=== PATIENT | female | born 1960 | race Caucasian/White ===

== ENCOUNTER 2024-08-22 09:19 | Day surgery (SDC) | payer BC ==
[2024-08-15 10:07] LABS: Absolute Eosinophils 0.1 K/uL (0-0.5); Absolute Lymphocytes (CBC) 1.1 K/uL (0.7-4.9); Absolute Monocytes 0.3 K/uL (0.1-1.3); Absolute Neutrophil 2.6 K/uL (1.8-8.0); Basophils % 0.4 % (0-1.3); Eosinophils % 3.1 % (0-4.4); Hematocrit 37.6 % (36.0-45.0); Hemoglobin 12.8 g/dL (12.0-15.0); Lymphocytes % 26.1 % (15.3-44.8); MCH 30.9 pg (27.0-35.0); MCHC 34.1 g/dL (32.0-36.0); MCV 90.6 fL (80-100); MPV 7.7 fL (7.6-11.3); Monocytes % 7.5 % (3.3-12.3); Neutrophils % 62.9 % (41.7-73.7); Platelets 264 thou/uL (152-406); RBC Red Blood Cell Count 4.15 M/uL (3.86-4.86); Red Cell Distribution Width 13.5 % (12.1-15.2)
[2024-08-15 10:33] LABS: Anion Gap 9.1 mEq/L (5.0-15.0); Potassium 4.1 mEq/L (3.5-5.1)
--- NOTE | 2024-08-15 14:12 | EKG ---
Test Date: 2024-08-15 Test Time: 09:19:15 Social Media Campaign Manager: TREMAYNE MEASUREMENT RESULTS: Intervals: Rate: 59 RI: 164 QRSD: 88 QT: 414 QTc: 409 [place]: P: 58 RI: 164 QRS: 52 T: 67 INTERPRETIVE STATEMENTS: Sinus bradycardia Otherwise normal ECG No previous ECG available for comparison Electronically Signed On 08-15-24 14:12:14 CDT by Husam Koch
[2024-08-22] MEDS ORDERED: Ringers Lactate 1,000 ML IV ONE (09:24)
[2024-08-22] MEDS ORDERED: KETOROLAC 30 MG/ML INJ ONE (11:00)
[2024-08-22] MEDS ORDERED: LIDOCAINE 2% MPF 5 ML VIAL ONE (11:00)
[2024-08-22] MEDS ORDERED: ONDANSETRON 4 MG/2 ML VIAL ONE (11:00)
[2024-08-22] MEDS ORDERED: dexAMETHasone 10 MG/ML VIAL ONE (11:00)
[2024-08-22] MEDS ORDERED: propofoL 200 MG/20 ML VIAL IV ONE (11:00)
[2024-08-22] MEDS ORDERED: ROCURONIUM 50 MG/5 ML VIAL IV ONE (11:01)
[2024-08-22] MEDS ORDERED: MIDAZOLAM HCL 2 MG/2 ML INJ ONE ×2 (11:01→11:09)
[2024-08-22] MEDS ORDERED: FENTANYL CITR 100 MCG/2 ML ONE (11:01)
[2024-08-22] MEDS: CEFAZOLIN SODIUM 2 GM/VIAL ONE (11:05)
[2024-08-22] MEDS: LIDOCAINE HCL/EPINEPHRINE 20 ML MDV ONE (11:33)
[2024-08-22] MEDS ORDERED: SUGAMMADEX SODIUM 200 MG/2 ML VIAL IV ONE (11:57)
[2024-08-22] MEDS ORDERED: NS 0.9% VIAL 10 ML ONE (12:16)
--- NOTE | 2024-08-22 12:35 | P.OP ---
Preoperative diagnosis: RIGHT Inguinal Hernia Postoperative diagnosis: RIGHT Inguinal Hernia Primary procedure: Open RIGHT Inguinal Hernia Repair with mesh Anesthesia: GETA + Local Estimated blood loss: <5cc Specimen: Hernia Sack, Hernia Contents Findings: adipose incarcerated in hernia sack Complications: None Implants: Bard Perfix Medium Plug and Patch Transferred to: Recovery Room Condition: Good
--- NOTE | 2024-08-22 13:03 | OP ---
Date of Procedure: 08/22/2024 Surgeon: Dilshad Camacho MD, Preoperative Diagnosis: Right inguinal hernia. Postoperative Diagnosis: Right inguinal hernia. Procedure Performed: Open right inguinal hernia repair with mesh. Anesthesia: General endotracheal plus local with 1% lidocaine with epinephrine. Estimated Blood Loss: Less than 5 cc. Specimens: Hernia sac and hernia contents. Findings: Adipose, incarcerated into hernia sac. Complications: None. Implants: Bard medium plug and patch PerFix hernia repair system. Disposition: The patient was transferred to recovery room in good condition. Procedure In Detail: After informed consent was obtained, the patient was brought to the operating r oom, prepped and draped in the usual sterile fashion. After adequate anesthesia was achieved, I anes thetized an area of the right inguinal region down to subcutaneous tissues. I made an inguinal incis ion down to subcutaneous tissues, dissected down through Camper's fat and Zoraida's fascia to expose t he external oblique aponeurosis. This was opened sharply with a 15 blade ultimately and then approxi mately opened to its entirety from the deep inguinal ring to the proximal edge using Metzenbaum sciss ors, protecting the ilioinguinal nerve throughout. At this point, I encircled the round ligament of the uterus using a Dalton drain and dissected free the hernia sac from the medial aspect of the cord /round ligament. At this point, I removed the hernia sac. After opening it removing preperitoneal f at which was incarcerated in this area, sent that off for pathologic examination. I then closed the inguinal hernia sac using 3-0 Vicryl suture and imbricated it back in the preperitoneal space. At th is point, I deployed a medium Bard PerFix plug into the preperitoneal space and circumferentially sec ured around after appropriately deploying it using 2-0 PDS sutures. At this point, I sized the patch appropriately, placed on the pubic tubercle medially, secured it using a 2-0 PDS suture and then on the medial and lateral shelving edge of the internal oblique aponeurosis and the undersurface of the inguinal ligament reconstituting the deep inguinal ring at this point with the same said 2-0 PDS sutu res in an interrupted fashion. At this point, the mesh was in good apposition and I proceeded to irr igate the area copiously and dried until completely clear. I then closed the external oblique aponeu rosis using a 3-0 Vicryl suture in a running fashion. I closed the Camper's fat and Zoraida's fascia en bloc using the same set 3-0 Vicryl suture. Deep dermal plane was also closed with 3-0 Vicryl sutu re for multi-layer complex closure in a multilayer simple closure. At this point, the skin was close d with a 4-0 Monocryl in a running fashion. Dermabond was placed over top. The patient tolerated th e procedure well without incident or complication and transferred to PACU in good condition. All cou nts were correct at the end of the case. ELIZABETH/HARJIT Voice ID: [id number] Report ID: [id number]
[2024-08-22] MEDS: ONDANSETRON 4 MG/2 ML VIAL ONE (13:09)
[2024-08-22] MEDS: HYDROCODONE/APAP 7.5/325 MG TAB ONE (13:57)
[2024-08-22 14:04] VITALS: BP 142/83; TEMP 97.7; O2SAT 97
== END 2024-08-22 14:50 | disposition home or self-care (01) ==
LOC: OR 09:19
PROVIDERS: ATTEND Surgery
PROC: 0YU50JZ Supplement Right Inguinal Region with Synthetic Substitute, Open Approach (ICD-10-PCS; principal; 2024-08-22 11:05)
DX: K40.90 Unilateral inguinal hernia, without obstruction or gangrene, not specified as recurrent (principal)
CPT/HCPCS: 93005; 85025; 80048; 36415; 88302; 49505; A4216; J2704; J2003; J2250 ×2; J3010; J1100; J2405 ×2; J7120

== ENCOUNTER 2024-12-27 00:36 | Inpatient (IN) | payer BC ==
--- OUTSIDE RECORDS SUMMARY | 2024-12-27 00:40 | XMS REPORT | Clinical Summary ---
Author Name Unknown Organization [facility] Address [address] [place] [address] Care Team Providers Care Recoil Spring Winder Name Role Phone Manuel Hernández MD Unavailable [phone] Manuel Hernández MD Unavailable [phone] Manuel Crawford MD Unavailable [phone] Blake Avila MD Primary Care Provider [phone] Farida Lira MD Unavailable Allergies No known active allergies Medications PARoxetine (PAXIL) 20 mg tablet 20 mg daily. 09/04/2016 Active tiZANidine (ZANAFLEX) 4 mg tablet 4 mg daily as needed. Active ALPRAZolam (XANAX) 0.25 mg tablet 0.25 mg daily as needed. Active UNABLE TO FIND Med Name: Sleep aid PRN (pt unsure of name) Active MELATONIN ORAL Take by mouth. Active Active Problems Problem Noted Date Diagnosed Date Personal history of malignant neoplasm of breast 12/03/2017 Family history of malignant neoplasm of breast 0 12/03/2017 Immunizations Immunization Administration Dates Next Due Moderna SARS-CoV-2 Vaccination 06/08/2021 Pfizer SARS-CoV-2 Vaccination (Purple Cap) 08/18,07/28/2020 Surgical History Surgery Date Site/Laterality Comments BREAST LUMPECTOMY 05/07/1977 - 05/06/1978 BREAST LUMPECTOMY 05/07/1987 - 05/06/1988 and fatty spot removed from leg at same time SIMPLE TOTAL MASTECTOMY 05/07/2000 - 05/06/2001 Bilatera l Medical History Medical History Date Comments Breast cancer Left Benign cyst of breast X2 Hypercholesterolemia not medicat ed, not very high Family History Medical History Relation Name Comments Colon cancer Father dx late 70s Melanoma Father dx 30s, 40s (paola th times on back) Breast cancer Maternal Aunt dx 50s Breast cancer Mother Colon cancer Paternal Aunt dx 80s Skin cancer Paternal Grandfather non-dorian anoma Esophageal cancer Paternal Grandmother dx 80s Lymphoma Paternal Uncle Skin cancer Paternal Uncle non-melanoma Relation Name Status Comments Father Maternal Aunt Mother Paternal Aunt Paternal Grandfather Paternal Grandmother Paternal Uncle Alive Social History Tobacco Use Types Packs/Day Years Used Date Smoking Tobacco: Never Smokeless Tobacco: Never Alcohol Use Standard Drinks/Week Comments Yes 1 (1 standard drink = 0.6 oz pur e alcohol) Comments Unknown Sex and Gender Information Value Date Recorded Sex Assigned at Female 07/22/2021 12:24 PM CDT 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 Gender Identity Female 07/22/2021 12:24 PM CDT Sexual Orientation Straight 07/22/2021 12 :24 PM CDT Obstetrics History Para Term AB IAB SAB Ectopic Multiple Livin g Live Births 2 2 2 Date Outcome GA Total Labor Labor/2nd/3rd Weight Sex Type Anes PTL Virginie A1 A5 Name Clin Para Para Plan of Treatment Health Maintenance Due Date Last Done Comments Pneumococcal Vaccine: 50+ Ye ars (1 of 1 - PCV) 11/04/2011 COVID-19 Vaccine ( season) 2024 06/08/2021, 08/18/2020, 07/28/2020 Influenza Vaccine (#1) 2025 Insurance BCBS PPO POS OUT OF STATE GENERIC BCBS PPO POS OUT OF STATE GENERIC Care Teams Recoil Spring Winder Relationship Specialty Start Date End Date Manuel Hernández MD [address] [place] [address] [place] [address] [email or web address] Found! PCP - External Referring 06/19/16 Manuel Hernández MD [address] [place] [address] [place] [address] [email or web address] Found! PCP - External Follow Up A 06/19/16 Manuel Crawford MD [address] [place] [phone] [email or web address] PCP - External Primary Care Provider Internal Medicine 06/23/16 Blake Avila MD [address] [place] [phone] [email or web address] PCP - General Plastic and Reconstructive Surgery 07/26/21 Farida Lira MD [address] [place] [address] [phone] [email or web address] Consulting Physician Medical Oncology 12/31/17
[2024-12-27] MEDS ORDERED: METOPROLOL TARTRATE 5 MG/5 ML INJ IV ONE (00:55)
[2024-12-27] MEDS ORDERED: ENOXAPARIN 80 MG/0.8 ML SQ ONE (00:55)
[2024-12-27] MEDS ORDERED: FAMOTIDINE 20 MG/2 ML VIAL IV ONE (00:55)
[2024-12-27] MEDS ORDERED: METOPROLOL TAR 50 MG TAB ONE (00:55)
[2024-12-27] MEDS ORDERED: NA CHLORIDE 0.9% 1,000 ML ONE (00:55)
[2024-12-27] MEDS ORDERED: Magnesium Sulfate 2gm IVPB 2 G/50 ML BAG IV ONE (00:56)
[2024-12-27 01:09] LABS: PT Prothrombin Time 11.9 SECONDS (10-13.0); Protime INR 1.05
[2024-12-27 01:15] LABS: Absolute Lymphocytes (CBC) 1.7 K/uL (0.7-4.9); Hematocrit 39.8 % (36.0-45.0); Hemoglobin 13.5 g/dL (12.0-15.0); MCH 30.7 pg (27.0-35.0); MCHC 33.9 g/dL (32.0-36.0); MCV 90.4 fL (80-100); MPV 7.6 fL (7.6-11.3); Nucleated RBC Absolute Count 0.0 (0-0); Nucleated Red Blood Cells % 0.1 % (0-0); RBC Red Blood Cell Count 4.40 M/uL (3.86-4.86); White Blood Count 5.10 thou/uL (4.3-10.9)
[2024-12-27 01:29] LABS: ALT/SGPT 23.0 U/L (13-56); AST/SGOT 18.0 U/L (15-37); Albumin 4.1 g/dL (3.4-5.0); Albumin/Globulin Ratio 1.2 (1.1-1.8); Alkaline Phosphatase 94.0 U/L (45-117); Anion Gap 8.3 mEq/L (5.0-15.0); BUN Blood Urea Nitrogen 11.0 mg/dL (7-18); Bilirubin Indirect, Calculated 0.4 mg/dL (0.2-0.8); Globulin 3.5 g/dL (2.3-3.5); Glucose Level 100.0 mg/dL (74-106); Lipase 31.0 U/L (13-75); Magnesium 2.3 mg/dL (1.6-2.4); NT PRO-BNP 77.0 pg/mL (<125); Potassium 3.3 mEq/L (3.5-5.1); Troponin High Sensitivity 9.4 pg/mL (<58.9)
[2024-12-27 01:30] LABS: Thyroid Stimulating Hormone 4.89 uIU/mL (0.358-3.740)
[2024-12-27] MEDS ORDERED: DIGOXIN 0.25 MG/ML AMP ONE (01:46)
[2024-12-27 01:55] LABS: Urine Microscopic Reflex YN NO UMIC
[2024-12-27] MEDS ORDERED: ASPIRIN 81 MG CHEWABLE TABLET ONE (01:58)
[2024-12-27] MEDS ORDERED: POTASSIUM 25 MEQ EFFERV TAB ONE (01:58)
--- NOTE | 2024-12-27 01:59 | RAD REPORT ---
INDICATION: Cough COMPARISON: Chest radiograph May 19, 2019 FINDINGS: Single frontal view of the chest was obtained. SUPPORT DEVICES: None HEART/MEDIASTINUM: Cardiomediastinal contours are normal. LUNGS/PLEURA: Lungs are clear. No pleural effusion or pneumothorax. OTHER: No other significant findings. IMPRESSION: No acute findings. Electronically signed by: Philip Sheffield DO 12/27/2024 01:50 AM CDT RP NR Due to temporary technical issues with the PACS/[employer] reporting system, reports are being signed by the in-house radiologist without review as a courtesy to ensure prompt reporting the [facility] radiologist is fully responsible for the content of the report. Transcribed Date/Time: 12/27/2024 1:59 AM
--- NOTE | 2024-12-27 02:01 | EDPHYS ---
Physician Documentation [facility] Name: Mahsa Obrien Age: 64 yrs Sex: Female : 1960 Arrival Date: 12/27/2024 Time: 00:36 Bed 5 Private MD: Jovany Solis V ED Physician Jose Alberto Ott HPI: 12/27 01:53 This 64 yrs old Female presents to ER via Ambulatory with complaints of gerry Irregular Pulse, High Blood Pressure, Doesn't Feel Right, Patient stated resting pulse at home was 129. 01:53 The patient has elevated blood pressure and discovered this at home, with a home gerry device. Onset: The symptoms/episode began/occurred just prior to arrival, this morning. Historical: - Allergies: 01: No Known Allergies; vc1 - Home Meds: 01:01 paroxetine HCl 20 mg oral tablet daily [Active]; Ozempic 0.25 mg or 0.5 mg (2 mg/3 mL) vc1 subcutaneous Pen Injector [Active]; - PMHx: 01:01 Anxiety; breast cancer; vc1 - PSHx: 01:01 Double Masectomy; Lymph nodes removed on left (2000); Inquinal hernia repair (August 22, vc1 2024); - Immunization history:: Adult Immunizations up to date. - Infectious Disease History:: Denies. - Social history:: Smoking status: Patient denies any tobacco usage or history of. ROS: 01:54 Constitutional: Negative for fever, chills, and weight loss, Eyes: Negative for injury, gerry pain, redness, and discharge, ENT: Negative for injury, pain, and discharge, Neck: Negative for injury, pain, and swelling, Respiratory: Negative for shortness of breath, cough, wheezing, and pleuritic chest pain, Abdomen/GI: Negative for abdominal pain, nausea, vomiting, diarrhea, and constipation, Back: Negative for injury and pain, : Negative for injury, bleeding, discharge, and swelling, MS/Extremity: Negative for injury and deformity, Skin: Negative for injury, rash, and discoloration, Neuro: Negative for headache, weakness, numbness, tingling, and seizure, Psych: Negative for depression, anxiety, suicide ideation, homicidal ideation, and hallucinations, Allergy/Immunology: Negative for hives, rash, and allergies, Endocrine: Negative for neck swelling, polydipsia, polyuria, polyphagia, and marked weight changes, Hematologic/Lymphatic: Negative for swollen nodes, abnormal bleeding, and unusual bruising, :54 Cardiovascular: Positive for chest pain, palpitations, :54 MS/extremity: Negative for pain, swelling, Exam: : Constitutional: This is a well developed, well nourished patient who is awake, alert, gerry and in no acute distress. Head/Face: Normocephalic, atraumatic. Eyes: Pupils equal round and reactive to light, extra-ocular motions intact. Lids and lashes normal. Conjunctiva and sclera are non-icteric and not injected. Cornea within normal limits. Periorbital areas with no swelling, redness, or edema. ENT: Nares patent. No nasal discharge, no septal abnormalities noted. Tympanic membranes are normal and external auditory canals are clear. Oropharynx with no redness, swelling, or masses, exudates, or evidence of obstruction, uvula midline. Mucous membranes moist. Neck: Trachea midline, no thyromegaly or masses palpated, and no cervical lymphadenopathy. Supple, full range of motion without nuchal rigidity, or vertebral point tenderness. No Meningismus. Chest/axilla: Normal chest wall appearance and motion. Nontender with no deformity. No lesions are appreciated. Respiratory: Lungs have equal breath sounds bilaterally, clear to auscultation and percussion. No rales, rhonchi or wheezes noted. No increased work of breathing, no retractions or nasal flaring. Abdomen/GI: Soft, non-tender, with normal bowel sounds. No distension or tympany. No guarding or rebound. No evidence of tenderness throughout. Back: No spinal tenderness. No costovertebral tenderness. Full range of motion. Skin: Warm, dry with normal turgor. Normal color with no rashes, no lesions, and no evidence of cellulitis. MS/ Extremity: Pulses equal, no cyanosis. Neurovascular intact. Full, normal range of motion., bilateral aka Neuro: Awake and alert, GCS 15, oriented to person, place, time, and situation. Cranial nerves II-XII grossly intact. Motor strength 5/5 in all extremities. Sensory grossly intact. Cerebellar exam normal. Normal gait. Psych: Awake, alert, with orientation to person, place and time. Behavior, mood, and affect are within normal limits. 01:54 Cardiovascular: Rate: tachycardic, actual rate is 150 bpm, Rhythm: irregularly irregular, Pulses: Pulses are 4+ in bilateral radial, brachial, femoral, popliteal, posterior tibial and and dorsalis pedis arteries.. Heart sounds: normal, Edema: is not appreciated, JVD: is not appreciated, 01:54 ECG was reviewed by the Attending Physician. 01:54 Musculoskeletal/extremity: Circulation is intact in all extremities. Sensation intact. Compartment Syndrome exam of affected extremity: is normal. no pain, no numbness, no tingling, no sensation deficit, no palor, no weak pulses, Weight bearing: able to fully bear weight, DVT Exam: No signs of deep vein thrombosis. no pain, no swelling, no tenderness, negative Homans' sign noted on exam, no appreciated bluish discoloration, no erythema, no increased warmth, Vital Signs: 00:52 Weight 82.55 kg; kd3 00:58 BP 128 / 114; Pulse 165; Resp 18; Temp 97.5; Pulse Ox 96% ; Weight 82.55 kg; Height 5 vc1 ft. 7 in. ; Pain 4/10; 01:20 BP 150 / 94; Pulse 127; Resp 17; Pulse Ox 98% on R/A; kd3 02:26 BP 118 / 98; Pulse 112; Resp 16; Pulse Ox 99% on R/A; kd3 02:54 BP 112 / 87; Pulse 104; Resp 18; Pulse Ox 96% ; cp4 00:58 Body Mass Index 28.50 (82.55 kg, 170.18 cm) vc1 00:58 Pain Scale: Adult vc1 [place] Coma Score: 01:54 Eye Response: spontaneous(4). Motor Response: obeys commands(6). Verbal Response: gerry oriented(5). Total: 15. MDM: 00:45 Medical Screening Exam initiated gerry 01:57 Antibiotic administration: Not indicated. Differential diagnosis: Anemia Anxiety gerry Reaction asthma, Bronchitis CHF exacerbation, hypertensive crisis, Malignant HTN, Myocardial Infarction pneumonia, pulmonary edema, Pulmonary Embolism reactive airway disease, Unstable Angina. HEART Score: History: Moderately Suspicious (1), ECG: Non specific repolarization disturbance / LBTB / PM (1), Age: > 45 and < 65 years (1), Risk Factors: > or = 3 Risk factors for atherosclerotic disease (2), [Hypercholesterolemia] [Hypertension] [+ Family HX] Troponin: < or = 1 x Normal Limit (0). The patient was given aspirin in the Emergency Department. HARMAN Risk Score: 1 - Three or more CAD risk factors, TOTAL SCORE = 1. Immunization status: Influenza vaccine: within last 5 years. Data reviewed: vital signs, nurses notes, lab test result(s), EKG, radiologic studies, plain films. Consideration of Admission/Observation Patient was admitted/placed on observation. Escalation of care including admission/observation considered. I considered the following discharge prescriptions or medication management in the emergency department Medications were administered in the Emergency Department. See MAR. Independent interpretation of the following test(s) in the Emergency Department EKG: See my EKG interpretation above. 12/27 00:48 Order name: Basic Metabolic Panel; Complete Time: : [facility] 12/27 00:48 Order name: CBC with Diff; Complete Time: [facility] 12/27 00:48 Order name: LFT's; Complete Time: [facility] 12/27 00:48 Order name: Magnesium; Complete Time: [facility] 12/27 00:48 Order name: NT PRO-BNP; Complete Time: : [facility] 12/27 00:48 Order name: PT-INR; Complete Time: : [facility] 12/27 00:48 Order name: Troponin HS; Complete Time: : [facility] 12/27 00:48 Order name: Lipase; Complete Time: : [facility] 12/27 00:48 Order name: TSH; Complete Time: : [facility] 12/27 00:48 Order name: UA Rfx Ashish Cult if indicated [facility] 12/27 01:32 Order name: T4 Free; Complete Time: 01:52 EDMN 12/27 02:17 Order name: Creatinine EDMN 12/27 02:17 Order name: Digoxin Level EDMS 12/27 02:17 Order name: Basic Metabolic Panel EDMN 12/27 02:17 Order name: Basic Metabolic Panel EDMS 12/27 02:17 Order name: CBC with Automated Diff EDMN 12/27 02:17 Order name: CBC with Automated Diff EDMN 12/27 02:17 Order name: Troponin High Sensitivity EDMN 12/27 00:48 Order name: XRAY Chest (1 view) [facility] 12/27 02:17 Order name: Chest Single View EDMS 12/27 02:17 Order name: Chest Single View [facility] 12/27 02:18 Order name: Echo with Doppler [facility] 12/27 02:17 Order name: CONS Physician Consult [facility] 12/27 02:17 Order name: EKG Electrocardiogram [facility] 12/27 02:17 Order name: EKG Electrocardiogram [facility] 12/27 02:17 Order name: EKG Electrocardiogram [facility] 12/27 02:17 Order name: EKG Electrocardiogram [facility] 12/27 00:48 Order name: Cardiac monitoring; Complete Time: 00:59 [facility] 12/27 00:48 Order name: EKG - Nurse/Tech; Complete Time: 00:59 [facility] 12/27 00:48 Order name: IV Saline Lock; Complete Time: 00:59 [facility] 12/27 00:48 Order name: Labs collected and sent; Complete Time: 00:59 [facility] 12/27 00:48 Order name: O2 Per Protocol; Complete Time: 00:59 [facility] 12/27 00:48 Order name: O2 Sat Monitoring; Complete Time: 00:59 [facility] EC:54 Rate is 142 beats/min. Rhythm is irregularly irregular. QRS [place] is Normal. [place] interval gerry is normal. QRS interval is normal. QT interval is normal. No Q waves. T waves are Normal. No ST changes noted. Clinical impression: Atrial Fibrillation. Interpreted by me. Reviewed by me. Administered Medications: 01:10 Drug: Famotidine IVP 20 mg IVP once; dilute with 10 mL 0.9% NaCl; give over 2 minutes kd3 Route: IVP; Site: right antecubital; 02:55 Follow up: Response: No adverse reaction cp4 01:10 Drug: Enoxaparin Sub-Q 1 mg/kg Sub-Q once Route: Sub-Q; Site: abdomen; kd3 02:55 Follow up: Response: No adverse reaction cp4 01:10 Drug: NS 0.9% IV 1000 ml IV at 1000 ml once; to be given as a bolus over 60 minutes kd3 Route: IV; Rate: 1000 ml; Site: right antecubital; 01:11 Drug: Metoprolol IVP 5 mg IVP every 5 minutes; Hold for SBP < 100 or HR < 60. x3 Route: kd3 IVP; Site: right antecubital; 01:11 Drug: Metoprolol PO 50 mg PO once Route: PO; kd3 02:55 Follow up: Response: No adverse reaction cp4 01:18 Drug: Metoprolol IVP 5 mg IVP every 5 minutes; Hold for SBP < 100 or HR < 60. x3 Route: kd3 IVP; Site: right antecubital; 01:28 Drug: Magnesium Sulfate IVPB 2 grams IVPB once over 2 hrs Route: IVPB; Infused Over: 2 kd3 hrs; Site: right antecubital; 01:29 Drug: Metoprolol IVP 5 mg IVP every 5 minutes; Hold for SBP < 100 or HR < 60. x3 Route: kd3 IVP; Site: right antecubital; 02:55 Follow up: Response: No adverse reaction cp4 01:53 Drug: Digoxin IVP 0.5 mg IVP once Route: IVP; Site: right antecubital; kd3 02:54 Follow up: Response: No adverse reaction cp4 02:22 Drug: Potassium PO Effervescent Tablet 25 mEq PO once; dissolve in 4 ounces of water or kd3 juice Route: PO; 02:54 Follow up: Response: No adverse reaction cp4 02:22 Drug: Aspirin PO Chewable Tablet 162 mg PO once Route: PO; kd3 02:54 Follow up: Response: No adverse reaction cp4 Disposition Summary: 12/27/24 02:00 Hospitalization Ordered Notes: Hospitalization Status: Inpatient Admission gerry Provider: Jovany Solis cha Location: Telemetry/MedSurg (Inpatient) gerry Condition: Stable gerry Problem: new gerry Symptoms: have improved gerry Bed/Room Type: Standard gerry Room Assignment: 404(12/27/24 02:19) sp Diagnosis - Chest pain, unspecified gerry - Essential (primary) hypertension gerry - Persistent atrial fibrillation - with RVR, NEW ONSET(12/27/24 02:19) gerry - Hypokalemia - 3.3(12/27/24 02:19) gerry Forms: - Medication Reconciliation Form gerry - SBAR form gerry - Leadership Thank You Letter gerry Signatures: Dispatcher [employer] Jose Alberto Callaway MD MD cha Pinkerton, Shawna sp Doucette, Kyli, RN RN kd3 Sarah Weinberg RN RN 1 Nelly Ritchie cp4 Corrections: (The following items were deleted from the chart) 00:49 00:48 BASIC METABOLIC PANEL+C.LAB.BRZ ordered. EDMS EDMS 00:49 00:49 CBC+H.LAB.BRZ ordered. EDMS EDMS 00:49 00:49 HEPATIC FUNCTION+C.LAB.BRZ ordered. EDMS EDMS 00:49 00:49 MAGNESIUM+C.LAB.BRZ ordered. EDMS EDMS 00:49 00:49 PROBNP+C.LAB.BRZ ordered. EDMS EDMS 00:49 00:49 PROTIME (+INR)+COAG.LAB.BRZ ordered. EDMS EDMS 00:49 00:49 Troponin High Sensitivity+C.LAB.BRZ ordered. EDMS EDMS 00:49 00:49 LIPASE+C.LAB.BRZ ordered. EDMS EDMS 00:49 00:49 THYROID STIMULAT HORMONE+C.LAB.BRZ ordered. EDMS EDMS 00:49 00:49 UA Rfx Ashish Cult if indicated+U.LAB.BRZ ordered. EDMS EDMS 00:49 00:49 Chest Single View+RAD.RAD.BRZ ordered. EDMS EDMS 02:19 02:00 gerry sp 02:19 02:00 Persistent atrial fibrillation - with RVR gerry gerry 02:19 02:19 Hypokalemia gerry gerry 02:20 02:17 CONS Physician Consult ordered. EDMS EDMS
--- NOTE | 2024-12-27 02:01 | ER ---
Nurse's Notes [facility] Name: Mahsa Obrien Age: 64 yrs Sex: Female : 1960 Arrival Date: 12/27/2024 Time: 00:36 Bed 5 Private MD: Jovany Solis V Diagnosis: Persistent atrial fibrillation-with RVR, NEW ONSET;Chest pain, unspecified;Essential (primary) hypertension;Hypokalemia-3.3 Presentation: 12/27 00:58 Chief complaint: Patient states: about 30 minutes ago my heart started feeling like it vc1 was skipping around and I have some pressure in the back of my neck. Coronavirus screen: Client denies travel out of the [place] in the last 14 days. At this time, the client does not indicate any symptoms associated with coronavirus-19. Ebola Screen: Patient negative for fever greater than or equal to 101.5 degrees Fahrenheit, and additional compatible Ebola Virus Disease symptoms Patient denies exposure to infectious person. Patient denies travel to an Ebola-affected area in the 21 days before illness onset. No symptoms or risks identified at this time. Initial Sepsis Screen: Does the patient meet any 2 criteria? No. Patient's initial sepsis screen is negative. Does the patient have a suspected source of infection? No. Patient's initial sepsis screen is negative. Risk Assessment: Do you want to hurt yourself or someone else? Patient reports no desire to harm self or others. Onset of symptoms was December 27, 2024 at 00:30. 00:58 Method Of Arrival: Ambulatory vc1 00:58 Acuity: KAITLYNN 2 vc1 Triage Assessment: 01:00 General: Appears distressed, uncomfortable, well groomed, well developed, Behavior is vc1 cooperative, anxious. Pain: Complains of pain in base of the skull Pain does not radiate. Pain currently is 4 out of 10 on a pain scale. Quality of pain is described as pressure, Pain began suddenly, 30 min ago. Is continuous, Also complains of no other associated symptoms. EENT: No deficits noted. No signs and/or symptoms were reported regarding the EENT system. Neuro: Level of Consciousness is awake, alert, obeys commands, Oriented to person, place, time, situation, Appropriate for age. Cardiovascular: Reports palpitations, Capillary refill < 3 seconds Patient's skin is warm and dry. Rhythm is atrial fibrillation Chest pain is denied. 01:00 Respiratory: Airway is patent Respiratory effort is even, unlabored, Respiratory vc1 pattern is regular, symmetrical. Derm: Skin is intact, is healthy with good turgor, Skin is dry, Skin is normal, Skin temperature is warm. Historical: - Allergies: : No Known Allergies; vc1 - Home Meds: : paroxetine HCl 20 mg oral tablet daily [Active]; Ozempic 0.25 mg or 0.5 mg (2 mg/3 mL) vc1 subcutaneous Pen Injector [Active]; - PMHx: : Anxiety; breast cancer; vc1 - PSHx: : Double Masectomy; Lymph nodes removed on left (2000); Inquinal hernia repair (August 22, vc1 2024); - Immunization history:: Adult Immunizations up to date. - Infectious Disease History:: Denies. - Social history:: Smoking status: Patient denies any tobacco usage or history of. Screenin:57 [facility] ED Fall Risk Assessment (Adult) History of falling in the last 3 months, cp4 including since admission No falls in past 3 months (0 pts) Confusion or Disorientation No (0 pts) Intoxicated or Sedated No (0 pts) Impaired Gait No (0 pts) Mobility Assist Device Used No (0 pt) Altered Elimination No (0 pt) Score/Fall Risk Level 0 - 2 = Low Risk Oriented to surroundings, Maintained a safe environment, Assessed \T\ reinforced patient's understanding of fall precautions, Hourly rounding (assess needs \T\ fall precautionary measures) done. Abuse screen: Denies threats or abuse. Denies injuries from another. Nutritional screening: No deficits noted. Tuberculosis screening: No symptoms or risk factors identified. Never had TB. Assessment: 00:57 General: Appears in no apparent distress. uncomfortable, Behavior is cooperative, cp4 appropriate for age, anxious. Pain: Denies pain. Pain does not radiate. Pain began does not have pain. Neuro: Level of Consciousness is awake, alert, obeys commands, Oriented to person, place, time, situation. Cardiovascular: Patient's skin is warm and dry. Rhythm is atrial fibrillation with rapid ventricular response. Respiratory: Airway is patent Respiratory effort is even, unlabored. GI: No signs and/or symptoms were reported involving the gastrointestinal system. : No signs and/or symptoms were reported regarding the genitourinary system. EENT: No signs and/or symptoms were reported regarding the EENT system. Derm: No signs and/or symptoms reported regarding the dermatologic system. Musculoskeletal: No signs and/or symptoms reported regarding the musculoskeletal system. Vital Signs: 00:52 Weight 82.55 kg; kd3 00:58 BP 128 / 114; Pulse 165; Resp 18; Temp 97.5; Pulse Ox 96% ; Weight 82.55 kg; Height 5 vc1 ft. 7 in. ; Pain 4/10; 01:20 BP 150 / 94; Pulse 127; Resp 17; Pulse Ox 98% on R/A; kd3 02:26 BP 118 / 98; Pulse 112; Resp 16; Pulse Ox 99% on R/A; kd3 02:54 BP 112 / 87; Pulse 104; Resp 18; Pulse Ox 96% ; cp4 00:58 Body Mass Index 28.50 (82.55 kg, 170.18 cm) vc1 00:58 Pain Scale: Adult vc1 Lizzy Coma Score: 01:54 Eye Response: spontaneous(4). Motor Response: obeys commands(6). Verbal Response: gerry oriented(5). Total: 15. ED Course: 00:38 Patient arrived in ED. jj6 00:38 Jovany Solis MD is Private Physician. jj6 00:39 Esthela Mills, RN is Primary Nurse. kd3 00:45 Jose Alberto Ott MD is Attending Physician. gerry 00:49 No provider procedures requiring assistance completed. Inserted saline lock: 20 gauge kd3 in right antecubital area, using aseptic technique. Blood collected. Flushed with 10 mL NS. Patient maintains SpO2 saturation greater than 95% on room air. 00:49 EKG done, by ED staff, reviewed by Jose Alberto Ott MD. kd3 00:57 Bed in low position. Call light in reach. Side rails up X2. Client placed on continuous cp4 cardiac and pulse oximetry monitoring. NIBP monitoring applied. evs tech on. Pulse ox on. NIBP on. 01:00 Triage completed. vc1 01:00 Arm band placed on right wrist. vc1 01:40 XRAY Chest (1 view) In Process Unspecified. EDMS 01:59 Jovany Solis MD is Hospitalizing Provider. gerry 02:58 Patient admitted, IV remains in place. kd3 02:59 Provided Education on: need for admit . kd3 Administered Medications: 01:10 Drug: Famotidine IVP 20 mg IVP once; dilute with 10 mL 0.9% NaCl; give over 2 minutes kd3 Route: IVP; Site: right antecubital; 02:55 Follow up: Response: No adverse reaction cp4 01:10 Drug: Enoxaparin Sub-Q 1 mg/kg Sub-Q once Route: Sub-Q; Site: abdomen; kd3 02:55 Follow up: Response: No adverse reaction cp4 01:10 Drug: NS 0.9% IV 1000 ml IV at 1000 ml once; to be given as a bolus over 60 minutes kd3 Route: IV; Rate: 1000 ml; Site: right antecubital; 01:11 Drug: Metoprolol IVP 5 mg IVP every 5 minutes; Hold for SBP < 100 or HR < 60. x3 Route: kd3 IVP; Site: right antecubital; 01:11 Drug: Metoprolol PO 50 mg PO once Route: PO; kd3 02:55 Follow up: Response: No adverse reaction cp4 01:18 Drug: Metoprolol IVP 5 mg IVP every 5 minutes; Hold for SBP < 100 or HR < 60. x3 Route: kd3 IVP; Site: right antecubital; 01:28 Drug: Magnesium Sulfate IVPB 2 grams IVPB once over 2 hrs Route: IVPB; Infused Over: 2 kd3 hrs; Site: right antecubital; 01:29 Drug: Metoprolol IVP 5 mg IVP every 5 minutes; Hold for SBP < 100 or HR < 60. x3 Route: kd3 IVP; Site: right antecubital; 02:55 Follow up: Response: No adverse reaction cp4 01:53 Drug: Digoxin IVP 0.5 mg IVP once Route: IVP; Site: right antecubital; kd3 02:54 Follow up: Response: No adverse reaction cp4 02:22 Drug: Potassium PO Effervescent Tablet 25 mEq PO once; dissolve in 4 ounces of water or kd3 juice Route: PO; 02:54 Follow up: Response: No adverse reaction cp4 02:22 Drug: Aspirin PO Chewable Tablet 162 mg PO once Route: PO; kd3 02:54 Follow up: Response: No adverse reaction cp4 Medication: 00:57 VIS not applicable for this client. cp4 Outcome: 02:00 Decision to Hospitalize by Provider. gerry 02:58 Admitted to Med/surg kd3 02:58 Condition: stable 02:58 Discharge instructions given to patient, family, Instructed on the need for admit, 02:59 Patient left the ED. kd3 Signatures: Dispatcher [employer] EDDC Jose Alberto Ott MD MD cha Jeffries, Jennifer jj6 Esthela Mills RN RN kd3 Sarah Weinberg RN RN vc1 Nelly Ritchie cp4
[2024-12-27] MEDS ORDERED: ONDANSETRON 4 MG/2 ML VIAL IV PRN ×2 (02:07→05:34)
[2024-12-27] MEDS ORDERED: ACETAMINOPHEN 500 MG TAB PO PRN ×3 (02:07→05:46)
[2024-12-27] MEDS ORDERED: MORPHINE 2 MG/ML SYR IV PRN ×2 (02:07→05:31)
[2024-12-27] MEDS: DIGOXIN 0.25 MG/ML AMP IV SCH ×2 (03:00→08:00)
[2024-12-27 03:30] VITALS: BMI 28.5
[2024-12-27] MEDS ORDERED: ACETAMINOPHEN 325 MG TABLET PO PRN (05:34)
[2024-12-27] MEDS: ALPRAZOLAM 0.5 MG TABLET PO ONE ×2 (05:46→21:02)
[2024-12-27 06:47] LABS: Anion Gap 8.2 mEq/L (5.0-15.0); BUN Blood Urea Nitrogen 9.0 mg/dL (7-18); Glucose Level 80.0 mg/dL (74-106); Potassium 4.2 mEq/L (3.5-5.1)
[2024-12-27 06:53] LABS: Troponin High Sensitivity 298.0 pg/mL (<58.9)
[2024-12-27] MEDS ORDERED: DIGOXIN 0.25 MG/ML AMP IV SCH (08:00)
[2024-12-27] MEDS ORDERED: TIZANIDINE 4 MG TABLET PO PRN (08:11)
[2024-12-27] MEDS ORDERED: ASPIRIN EC 81 MG TAB PO SCH (09:00)
[2024-12-27] MEDS: FAMOTIDINE 20 MG/2 ML VIAL IV SCH (09:00)
[2024-12-27] MEDS: ENOXAPARIN 80 MG/0.8 ML SQ SCH (09:00)
[2024-12-27] MEDS ORDERED: ENOXAPARIN 80 MG/0.8 ML SQ SCH (09:00)
[2024-12-27] MEDS: ASPIRIN EC 81 MG TAB PO SCH (09:00)
[2024-12-27] MEDS ORDERED: FAMOTIDINE 20 MG/2 ML VIAL IV SCH (09:00)
[2024-12-27] MEDS: METOPROLOL TAR 50 MG TAB PO SCH (09:00)
[2024-12-27] MEDS ORDERED: METOPROLOL TAR 50 MG TAB PO SCH (09:00)
--- NOTE | 2024-12-27 11:38 | P.HP ---
Certification for Inpatient Patient admitted to: Inpatient With expected LOS: >2 Midnights Patient will require the following post-hospital care: None Practitioner: I am a practitioner with admitting privileges, knowledge of patient current condition, hospital course, and medical plan of care. Services: Services provided to patient in accordance with Admission requirements found in Title 42 Section 412.3 of the Code of Federal Regulations Patient History Date of Service: 01/03/25 Reason for admission: Atrial fibrillation rapid ventricular response History of Present Illness: Patient is a very pleasant 64-year-old female who presented to the emergency room with palpitations. She would have some chest pressure at home. Her recently had coronary artery bypass grafting and is still in the hospital setting. She says she has not had any extensive cardiac workup done in a long time. At home her blood pressure was elevated at 150/90 and her heart rate was fluctuating from 1 10-1 20s. She does not have any family history of coronary artery disease. She had a mother who had a valve disease and her son has SVTs. She denies any tobacco use. She has hyperlipidemia. She came to the ER and she was found to be in atrial fibrillation with rapid ventricular response. Patient was given metoprolol and her heart rate is been better cont rolled. She remains in atrial fibrillation. At this time she will be admitted to the hospital for further workup. Will get a CT PE protocol as well as she has some chest pressure at the time of her presentation. Patient follows up with Dr. Solis who is out of town today. I will be covering for the weekend. Allergies No Known Allergies Allergy (Verified 08/22/24 11:37) Home Medications: PARoxetine HCL [Paxil] 20 mg PO DAILY 08/15/24 Semaglutide [Ozempic] 0.5 mg SQ Q7D 08/15/24 Tizanidine [Zanaflex] 4 mg PO DAILY PRN 08/15/24 Hydrocodone 5/APAP 325 [[place] 5/325] 1 tab PO Q6H PRN 12/27/24 - Past Medical/Surgical History -: BREAST CA, IMPLANTS -: inguinal hernia repair - Family History Father Family History: Reviewed- Non-Contributory - Social History Smoking Status: Never smoker Alcohol use: No CD- Drugs: No Place of Residence: Home Review of Systems 10-point ROS is otherwise unremarkable Physical Examination - Vital Signs Temperature: 98.3 F Blood Pressure: 117/70 Pulse: 89 Respirations: 16 Pulse Ox (%): 97 - Physical Exam General: Alert, In no apparent distress, Oriented x3 HEENT: Atraumatic, PERRLA, Mucous membr. moist/pink, EOMI, Sclerae nonicteric Neck: Supple, 2+ carotid pulse no bruit, No LAD, Without JVD or thyroid abnormality Respiratory: Clear to auscultation bilaterally, Normal air movement Cardiovascular: Regular rate/rhythm, Normal S1 S2 Gastrointestinal: Normal bowel sounds, Soft and benign, Non-distended, No tenderness Musculoskeletal: No clubbing, No swelling, No tenderness Integumentary: No rashes Neurological: Normal gait, Normal speech, Normal strength at 5/5 x4 extr, Normal tone, Sensation intact, Cranial nerves 3-12 intact, Normal affect Lymphatics: No axilla or inguinal lymphadenopathy - Studies Laboratory Data (last 24 hrs) 12/27/24 12/27/24 12/27/24 00:53 00:53 00:53 WBC 5.10 Hgb 13.5 Hct 39.8 Plt Count 296 PT 11.9 INR 1.05 Sodium 139 Potassium 3.3 L BUN 11 Creatinine 0.82 Glucose 100 Magnesium 2.3 Total Bilirubin 0.6 AST 18 ALT 23 Alkaline Phosphatase 94 Lipase 31 Assessment & Plan - Problems (Diagnosis) (1) Atrial fibrillation with rapid ventricular response Current Visit: Yes Status: Acute (2) History of breast cancer Current Visit: Yes Status: Acute - Plan Plan: 1. Atrial fibrillation rapid ventricular response; continue with medication for rate control and anticoagulation. Cardiology consulted. Echocardiogram pending. Patient's troponins are elevated which is most likely related type II myocardial infarction. Patient also having some chest pressure so we will do CT PE protocol 2. Type II myocardial infarction; continue with antiplatelet therapy statin therapy and anticoagulation. Repeat troponins. 3. History of breast cancer; patient in remission status post bilateral mastectomy. 4. Chest pressure on arrival. With her prior history of breast cancer could be concerning for PE. Will get CT PE protocol. 5. Anticipate discharge once seen by cardiology and if her troponins are downtrending patient may be able to get outpatient workup. Will wait for cardiology recommendation. Discharge Plan: Home Plan to discharge in: Greater than 2 days - Advance Directives Does patient have a Living Will: No Does patient have a Durable POA for Healthcare: No - Code Status/Comfort Care Code Status Assessed: Yes Code Status: Full Code Critical Care: No Time Spent Managing PTS Care (In Minutes): 50
--- NOTE | 2024-12-27 12:22 | RAD REPORT ---
EXAMINATION: CTA CHEST PE CLINICAL INDICATION: Female, 64 years old. PE/Afib new onset TECHNIQUE: This examination was performed according to an angiographic protocol with 3D post-processi ng. This involves 3D reconstructions, MIPs, volume rendered images and/or shaded surface rendering. One or more of the following dose reduction techniques were used: Automated exposure control, adjustm ent of the mA and/or kV according to patient size, and/or iterative reconstruction. Unless otherwise specified, incidental findings do not require dedicated imaging follow-up. [id number]. COMPARISON: Same day chest radiograph. FINDINGS: LOWER NECK: Visualized thyroid gland and soft tissues are normal. MEDIASTINUM AND LYMPH NODES: No mediastinal mass or fluid collection. Normal size mediastinal, hilar, and axillary lymph nodes. THORACIC AORTA: No thoracic aortic aneurysm. PULMONARY ARTERIES: Caliber is within normal limits. HEART: Normal heart size. No coronary calcifications.No significant pericardial effusion. LUNGS AND AIRWAYS: No evidence of airspace or interstitial process. Scattered 4 mm and smaller pulmon jacob nodules noted which are of doubtful significance and do not require follow-up. PLEURA: No pleural effusions. No pneumothorax. OSSEOUS STRUCTURES AND CHEST WALL: Bilateral breast prostheses. UPPER ABDOMEN: No acute abnormalities. IMPRESSION: Negative for pulmonary embolism. No other acute process identified in the chest.
[2024-12-27 17:28] LABS: Thyroid Stimulating Hormone 2.49 uIU/mL (0.358-3.740)
[2024-12-27 17:37] LABS: Troponin High Sensitivity 421.9 pg/mL (<58.9)
[2024-12-27] MEDS: ALPRAZOLAM 0.25 MG TABLET PO ONE (17:46)
[2024-12-28 04:49] VITALS: TEMP 97.7
[2024-12-28] MEDS: NA CHLORIDE 0.9% 250 ML IV ONE (07:30)
[2024-12-28 08:04] VITALS: BP 146/75
[2024-12-28] MEDS: HYDROCODONE/APAP 5/325 MG TAB PO PRN (08:34)
--- NOTE | 2024-12-28 08:41 | P.DS ---
Discharge Date: 12/28/24 Disposition: ROUTINE DISCHARGE Discharge Condition: GOOD Reason for Admission: Atrial fibrillation rapid ventricular response Consultations: Cardiology - Problems (1) Atrial fibrillation with rapid ventricular response Current Visit: Yes Status: Acute (2) History of breast cancer Current Visit: Yes Status: Acute (3) Type 2 myocardial infarction due to arrhythmia Current Visit: Yes Status: Acute Brief History of Present Illness: Patient is a very pleasant 64-year-old female who presented to the emergency room with palpitations. She would have some chest pressure at home. Her husba nd recently had coronary artery bypass grafting and is still in the hospital setting. She says she has not had any extensive cardiac workup done in a long time. At home her blood pressure was elevated at 150/90 and her heart rate was fluctuating from 1 10-1 20s. She does not have any family history of coronary artery disease. She had a mother who had a valve disease and her son has SVTs. She denies any tobacco use. She has hyperlipidemia. She came to the ER and she was found to be in atrial fibrillation with rapid ventricular response. Patient was given metoprolol and her heart rate is been better controlled. She remains in atrial fibrillation. At this time she will be admitted to the hospital for further workup. Will get a CT PE protocol as well as she has some chest pressure at the time of her presentation. Patient follows up with Dr. Solis who is out of town today. I will be covering for the weekend. Hospital Course: Patient is a 64-year-old female who was admitted to the hospital with atrial fibrillation with rapid ventricular response. She had troponin elevation as well. She is not having any active chest pain at this time. Spoke with cardiology and troponins are trending downward. Plan was for her to get more extensive workup for her atrial fibrillation which is new onset. Patient had rapid ventricular response as well. Patient's heart rate was controlled with metoprolol and currently she is in a normal sinus rhythm. She was getting Lovenox for anticoagulation. Will switch this over to Eliquis 5 mg twice daily. Will continue with antiplatelet therapy and statin therapy as well. Patient was wanting to go home as her just had cardiac surgery. She was advised not to do anything strenuous. She is supposed to go to the cardiology office on Sunday morning for further testing. She is advised to come back to the emergency room if she starts having chest pain. Patient still requires inpatient hospitalization but as she is not wanting any further cardiac workup at this time and wanting to be home I will go ahead and discharge her but she will need to continue to pursue outpatient follow-up in the morning as she needs more extensive cardiac workup. Patient will continue with inpatient hospitalization for now and I will follow her up with a phone call in the evening as well as in the morning to make sure she is doing well. At this time, patient is going to be discharged home for outpatient follow-up. Vital Signs/Physical Exam: Temp Pulse Resp BP Pulse Ox 97.7 F 62 16 146/75 H 98 12/28/24 08:00 12/28/24 08:00 12/28/24 08:00 12/28/24 08:00 12/28/24 08:00 General: Alert, In no apparent distress, Oriented x3 Cardiovascular: Regular rate/rhythm, Normal S1 S2 Laboratory Data at Discharge: WBC 5.10 thou/uL (4.3-10.9) 12/27/24 00:53 Hgb 13.5 g/dL (12.0-15.0) 12/27/24 00:53 Hct 39.8 % (36.0-45.0) 12/27/24 00:53 Plt Count 296 thou/uL (152-406) 12/27/24 00:53 PT 11.9 SECONDS (10-13.0) 12/27/24 00:53 INR 1.05 12/27/24 00:53 Sodium 143 mEq/L (136-145) 12/27/24 05:27 Potassium 4.2 mEq/L (3.5-5.1) D 12/27/24 05:27 BUN 9 mg/dL (7-18) 12/27/24 05:27 Creatinine Cancelled 12/27/24 Unknown Glucose 80 mg/dL (74-106) 12/27/24 05:27 Magnesium 2.3 mg/dL (1.6-2.4) 12/27/24 00:53 Total Bilirubin 0.6 mg/dL (0.2-1.0) 12/27/24 00:53 AST 18 U/L (15-37) 12/27/24 00:53 ALT 23 U/L (13-56) 12/27/24 00:53 Alkaline Phosphatase 94 U/L (45-117) 12/27/24 00:53 Lipase 31 U/L (13-75) 12/27/24 00:53 Home Medications: PARoxetine HCL [Paxil] 20 mg PO DAILY 08/15/24 Semaglutide [Ozempic] 0.5 mg SQ Q7D 08/15/24 Tizanidine [Zanaflex*] 4 mg PO DAILY PRN 08/15/24 Hydrocodone 5/APAP 325 [[place] 5/325*] 1 tab PO Q6H PRN 12/27/24 Apixaban [Eliquis] 5 mg PO BID #60 tablet 12/28/24 Aspirin [Aspirin EC 81 MG] 162 mg PO DAILY #60 tab 12/28/24 Atorvastatin Calcium [Lipitor] 40 mg PO BEDTIME #30 tab 12/28/24 Metoprolol Tartrate [Lopressor*] 50 mg PO BID #60 tab 12/28/24 New Medications: Aspirin [Aspirin EC 81 MG] 162 mg PO DAILY #60 tab Apixaban [Eliquis] 5 mg PO BID #60 tablet Atorvastatin Calcium [Lipitor] 40 mg PO BEDTIME #30 tab Metoprolol Tartrate [Lopressor*] 50 mg PO BID #60 tab Physician Discharge Instructions: -DC IV and DC home -Follow-up with PCP, Dr. Solis, in 1 to 2 weeks -Follow-up with Cardiology in the morning at 8-9 AM -Please call Dr. Chacon at [phone] if any questions regarding hospital stay -Please call nursing station at [phone] if any nursing or medication questions -Return to the emergency room if symptoms worsen Diet: AHA Activity: Fall precautions Followup: Jovany Solis MD [Primary Care Provider] - Time spent managing pt's care (in minutes): 40
[2024-12-28] MEDS: APIXABAN 5 MG TABLET PO SCH (09:00)
[2024-12-28 09:43] VITALS: O2SAT 98
== END 2024-12-28 11:30 | disposition home or self-care (01) | DRG 282 ==
LOC: ER 00:36 → 4TH 02:02
PROVIDERS: ADMIT Internal Medicine; ATTEND Internal Medicine
DX: I48.19 Other persistent atrial fibrillation (principal); I21.A1 Myocardial infarction type 2; Z85.3 Personal history of malignant neoplasm of breast; Z79.82 Long term (current) use of aspirin; Z79.899 Other long term (current) drug therapy; Z79.891 Long term (current) use of opiate analgesic; Z79.01 Long term (current) use of anticoagulants; Z90.13 Acquired absence of bilateral breasts and nipples; Z98.890 Other specified postprocedural states; I10 Essential (primary) hypertension; E87.6 Hypokalemia; E78.5 Hyperlipidemia, unspecified
CPT/HCPCS: 36415; 71045; 71275; 80048; 80076; 80162; 81003; 83690; 83735; 83880; 84439; 84443; 84484; 85025; 85610; 93005; 96372; 96374; 96375; 99285; J1160; J1650; J3475; J7030; J7050; Q9967